=== PATIENT | female | born 2000 | race Caucasian/White ===

== ENCOUNTER → 2020-04-12 | Outpatient (CLI) | payer OTHER ==
[~2020-04-12] MED LIST: AMOCLA875 PO; Ativan0.5 MG PO; Ativan1 MG PO; CIPR500 PO; DOXY100 PO; HYOSCYAMINE; Hydroxyzine HCl25 MG PO; IBUP400 PO; METR500 PO; Multivitamins1 EACH PO; Norco 5-325 Ta1 EACH PO; ONDA4 PO; PROP10 PO; RANITIDINE; SULTRIDS PO; Zofran Odt4 MG SL
[2020-04-12 16:08] LABS: BASOPHILS ABSOLUTE AUTO 0.04 K/mm3 (0.00-0.23); BASOPHILS PERCENT AUTO 0 % (0-2); EOSINOPHILS ABSOLUTE AUTO 0.05 K/mm3 (0.00-0.68); EOSINOPHILS PERCENT AUTO 0 % (0-6); Hematocrit 39.8 % (33.0-51.0); Hemoglobin 13.9 g/dL (11.5-16.0); IMMATURE GRAN ABSOLUTE AUTO 0.03 K/mm3 (0.00-0.10); IMMATURE GRAN PERCENT AUTO 0 % (0-1); LYMPHOCYTES ABSOLUTE AUTO 1.54 K/mm3 (0.84-5.20); LYMPHOCYTES PERCENT AUTO 14 % (21-46); MONOCYTES ABSOLUTE AUTO 0.63 K/mm3 (0.16-1.47); MONOCYTES PERCENT AUTO 6 % (4-13); Mean Corpuscular HGB Conc 34.9 g/dL (31.5-36.5); Mean Corpuscular Volume 89 fL (80-100); Mean Platelet Volume 10.1 fL (9.1-12.4); NEUTROPHILS PERCENT AUTO 80 % (41-73); Platelet Count 351 K/mm3 (150-400); RDW Coefficient Variation 11.7 % (11.7-14.2); RDW Standard Deviation 37.9 fL (35.1-46.3); Red Blood Cell Count 4.48 M/mm3 (3.80-5.20); White Blood Cell Count 11.29 K/mm3 (4.00-11.30)
[2020-04-12 16:21] LABS: Alanine Aminotransfer (ALT/SGP 22 U/L (12-78); Albumin, Blood 3.9 g/dL (3.4-5.0); Albumin/Globulin Ratio 1.1 (0.8-1.8); Alk Phos 56 U/L (45-116); Anion Gap 6 mmol/L (6-16); Aspartate Aminotrans (AST/SGOT 19 U/L (12-37); Bilirubin, Total 0.5 mg/dL (0.1-1.0); Blood Urea Nitrogen 9 mg/dL (8-21); Bun/Creatinine Ratio 14.5 (12.0-20.0); CO2, Blood 28 mmol/L (21-32); Calcium, Blood 9.2 mg/dL (8.5-10.1); Chloride, Blood 104 mmol/L (98-108); Creatinine, Blood 0.62 mg/dL (0.40-1.00); Globulin, Blood 3.5 g/dL (2.2-4.0); Glomerular Filtration Rate >60 (60-); Glucose, Blood 102 mg/dL (70-99); Potassium, Blood 3.4 mmol/L (3.5-5.5); Sodium, Blood 138 mmol/L (136-145); Total Protein, Blood 7.4 g/dL (6.4-8.2)
== END ==
LOC: LAB 15:55
PROVIDERS: Family Medicine
DX: R42 Dizziness and giddiness (principal)
CPT/HCPCS: 80053; 84443; 85025

== ENCOUNTER 2020-04-27 11:54 | Emergency (ER) | payer OTHER ==
[~2020-04-27] VITALS: Ht 152.4 cm; Wt 47.6 kg
[~2020-04-27 11:54] MED LIST changes: -AMOCLA875 PO; -CIPR500 PO; -DOXY100 PO; -Hydroxyzine HCl25 MG PO; -IBUP400 PO; -METR500 PO; -Multivitamins1 EACH PO; -Norco 5-325 Ta1 EACH PO; -ONDA4 PO; -PROP10 PO; -SULTRIDS PO
[2020-04-27 12:55] LABS: BASOPHILS ABSOLUTE AUTO 0.03 K/mm3 (0.00-0.23); BASOPHILS PERCENT AUTO 0 % (0-2); EOSINOPHILS ABSOLUTE AUTO 0.01 K/mm3 (0.00-0.68); EOSINOPHILS PERCENT AUTO 0 % (0-6); Hematocrit 38.3 % (33.0-51.0); Hemoglobin 13.5 g/dL (11.5-16.0); IMMATURE GRAN PERCENT AUTO 1 % (0-1); LYMPHOCYTES PERCENT AUTO 3 % (21-46); MONOCYTES ABSOLUTE AUTO 1.18 K/mm3 (0.16-1.47); MONOCYTES PERCENT AUTO 8 % (4-13); Mean Corpuscular HGB 31.9 pg (26.0-34.0); Mean Corpuscular HGB Conc 35.2 g/dL (31.5-36.5); Mean Corpuscular Volume 91 fL (80-100); Mean Platelet Volume 9.9 fL (9.1-12.4); NEUTROPHILS ABSOLUTE AUTO 13.73 K/mm3 (1.96-9.15); NEUTROPHILS PERCENT AUTO 88 % (41-73); Platelet Count 259 K/mm3 (150-400); RDW Coefficient Variation 12.1 % (11.7-14.2); RDW Standard Deviation 39.8 fL (35.1-46.3); Red Blood Cell Count 4.23 M/mm3 (3.80-5.20); White Blood Cell Count 15.55 K/mm3 (4.00-11.30)
[2020-04-27 13:12] LABS: International Normalized Ratio 1.11; Prothrombin Time Results 11.8 Sec (9.7-11.5)
[2020-04-27 13:15] LABS: Alanine Aminotransfer (ALT/SGP 13 U/L (12-78); Albumin, Blood 3.3 g/dL (3.4-5.0); Albumin/Globulin Ratio 0.8 (0.8-1.8); Alk Phos 43 U/L (45-116); Anion Gap 9 mmol/L (6-16); Aspartate Aminotrans (AST/SGOT 12 U/L (12-37); Bilirubin, Total 0.4 mg/dL (0.1-1.0); Blood Urea Nitrogen 5 mg/dL (8-21); Bun/Creatinine Ratio 8.4 (12.0-20.0); CO2, Blood 21 mmol/L (21-32); Calcium, Blood 8.8 mg/dL (8.5-10.1); Chloride, Blood 107 mmol/L (98-108); Creatinine, Blood 0.59 mg/dL (0.40-1.00); Glomerular Filtration Rate >60 (60-); Glucose, Blood 132 mg/dL (70-99); Potassium, Blood 3.1 mmol/L (3.5-5.5); Sodium, Blood 137 mmol/L (136-145); Total Protein, Blood 7.3 g/dL (6.4-8.2)
[2020-04-27 14:00] LABS: Source, Urine Catheter
[2020-04-27 14:07] LABS: Bilirubin, Urine Neg (Neg); Blood, Urine 1+ (Neg); Glucose Qualitative, Urine Neg (Neg); Ketones, Urine Neg (Neg); Leukocyte Esterase, Urine Neg (Neg); Nitrite, Urine Neg (Neg); Protein, Urine Neg (Neg); Specific Gravity, Urine 1.005 (1.003-1.022); Urobilinogen, Urine NORM (Normal); pH, Urine 6.5 (5.0-8.0)
[2020-04-27 14:21] LABS: Appearance, Urine Clear (Clear); Color, Urine Pale Yellow (P-Yellow)
[2020-04-27 14:22] LABS: Bacteria Few /hpf; Red Blood Cells, Urine 0-2 /hpf (0-2); Squamous Epithelial Cells Not Seen /hpf (Few); White Blood Cells, Urine Not Seen /hpf (0-5)
[2020-04-27] MEDS ORDERED: DOXY100 PO (15:20)
[2020-08-15] MEDS ORDERED: IBUP400 PO (03:36)
[2020-08-15] MEDS ORDERED: Multivitamins1 EACH PO (03:37)
[2020-08-16] MEDS ORDERED: AMOCLA875 PO (12:07)
== END 2020-04-27 15:32 | disposition home or self-care (01) ==
LOC: ER 11:54
PROVIDERS: Physician Assistant
DX: S60.511A Abrasion of right hand, initial encounter (principal); E87.6 Hypokalemia; R59.0 Localized enlarged lymph nodes; R50.9 Fever, unspecified; Z88.0 Allergy status to penicillin; Z79.899 Other long term (current) drug therapy; W55.03XA Scratched by cat, initial encounter
CPT/HCPCS: 36415; 76882; 80053; 81001; 81025; 83605; 85025; 85610; 85730; 86308; 87040; 87086; 93005; 93010; 96374; 96375; 99284-25; J1885; J2405; J3010; J7030

== ENCOUNTER → 2020-05-18 | Outpatient (CLI) | payer OTHER ==
[~2020-05-18] MED LIST changes: +AMOCLA875 PO; +CIPR500 PO; +DOXY100 PO; +Hydroxyzine HCl25 MG PO; +IBUP400 PO; +METR500 PO; +Multivitamins1 EACH PO; +Norco 5-325 Ta1 EACH PO; +ONDA4 PO; +PROP10 PO; +SULTRIDS PO
[2020-05-18 19:30] LABS: Hemoglobin 12.3 g/dL (11.5-16.0); Mean Corpuscular HGB 30.1 pg (26.0-34.0); Mean Corpuscular HGB Conc 33.2 g/dL (31.5-36.5); Mean Corpuscular Volume 91 fL (80-100); Mean Platelet Volume 10.1 fL (9.1-12.4); Platelet Count 605 K/mm3 (150-400); RDW Coefficient Variation 11.7 % (11.7-14.2); RDW Standard Deviation 38.9 fL (35.1-46.3); Red Blood Cell Count 4.08 M/mm3 (3.80-5.20); White Blood Cell Count 20.41 K/mm3 (4.00-11.30)
[2020-05-18 19:53] LABS: BASOPHILS PERCENT MAN 1 % (0-2); EOSINOPHILS PERCENT MAN 1 % (0-6); LYMPHOCYTES ABSOLUTE MAN 2.85 K/mm3 (0.84-5.20); LYMPHOCYTES PERCENT MAN 14 % (21-46); MONOCYTES ABSOLUTE MAN 1.22 K/mm3 (0.16-1.47); MONOCYTES PERCENT MAN 6 % (4-13); NEUTROPHILS ABSOLUTE MAN 15.91 K/mm3 (1.96-9.15); SEG NEUTROPHILS PERCENT MAN 78 % (41-73); TOTAL CELLS COUNTED 100
== END | disposition home or self-care (01) ==
LOC: LAB SHORT 19:23 → LAB 19:23
PROVIDERS: Nurse Practitioner
DX: A28.1 Cat-scratch disease (principal)
CPT/HCPCS: 85007; 85027; 85651

== ENCOUNTER 2020-05-19 12:11 | Observation (INO) | payer OTHER ==
[~2020-05-19] VITALS: Ht 152.4 cm; Wt 45.4 kg
[~2020-05-19 12:11] MED LIST changes: -AMOCLA875 PO; -CIPR500 PO; -Hydroxyzine HCl25 MG PO; -IBUP400 PO; -METR500 PO; -Multivitamins1 EACH PO; -Norco 5-325 Ta1 EACH PO; -ONDA4 PO; -PROP10 PO; -SULTRIDS PO
[2020-05-19] MEDS ORDERED: PROP10 PO (15:46)
[2020-05-19] MEDS ORDERED: Hydroxyzine HCl25 MG PO (15:47)
[2020-05-19] MEDS ORDERED: Norco 5-325 Ta1 EACH PO (16:03)
[2020-05-19] MEDS ORDERED: CIPR500 PO (16:03)
[2020-05-19 16:30] LABS: BASOPHILS PERCENT AUTO 0 % (0-2); EOSINOPHILS ABSOLUTE AUTO 0.14 K/mm3 (0.00-0.68); EOSINOPHILS PERCENT AUTO 1 % (0-6); Hematocrit 36.9 % (33.0-51.0); Hemoglobin 12.6 g/dL (11.5-16.0); IMMATURE GRAN ABSOLUTE AUTO 0.14 K/mm3 (0.00-0.10); IMMATURE GRAN PERCENT AUTO 1 % (0-1); LYMPHOCYTES ABSOLUTE AUTO 1.88 K/mm3 (0.84-5.20); LYMPHOCYTES PERCENT AUTO 8 % (21-46); MONOCYTES ABSOLUTE AUTO 1.26 K/mm3 (0.16-1.47); MONOCYTES PERCENT AUTO 5 % (4-13); Mean Corpuscular HGB 30.3 pg (26.0-34.0); Mean Corpuscular HGB Conc 34.1 g/dL (31.5-36.5); Mean Corpuscular Volume 89 fL (80-100); Mean Platelet Volume 9.6 fL (9.1-12.4); NEUTROPHILS PERCENT AUTO 85 % (41-73); Platelet Count 568 K/mm3 (150-400); RDW Coefficient Variation 11.6 % (11.7-14.2); RDW Standard Deviation 37.2 fL (35.1-46.3); Red Blood Cell Count 4.16 M/mm3 (3.80-5.20); White Blood Cell Count 23.62 K/mm3 (4.00-11.30)
[2020-05-19 16:42] LABS: Alanine Aminotransfer (ALT/SGP 14 U/L (12-78); Albumin/Globulin Ratio 0.5 (0.8-1.8); Alk Phos 50 U/L (50-136); Anion Gap 4 mmol/L (6-16); Aspartate Aminotrans (AST/SGOT 13 U/L (12-37); Bilirubin, Total 0.4 mg/dL (0.1-1.0); Blood Urea Nitrogen 5 mg/dL (8-24); Bun/Creatinine Ratio 8.4 (12.0-20.0); CO2, Blood 29 mmol/L (21-32); Calcium, Blood 9.5 mg/dL (8.5-10.1); Chloride, Blood 104 mmol/L (98-108); Globulin, Blood 5.5 g/dL (2.2-4.0); Glomerular Filtration Rate >60 (60-); Glucose, Blood 97 mg/dL (70-99); Potassium, Blood 4.1 mmol/L (3.5-5.5); Sodium, Blood 137 mmol/L (136-145); Total Protein, Blood 8.5 g/dL (6.4-8.2)
[2020-05-19 16:46] LABS: International Normalized Ratio 1.14; Prothrombin Time Results 12.1 Sec (9.7-11.5)
--- NOTE | 2020-05-19 16:48 | NUR ---
ADMISSION PT ARRIVED TO FLOOR AT APROX 1630 FROM ER. PT L BREAST WITH A LARGE AMOUNT OF SWELLING AND FIRMNESS, PAIN WITH PALPATION. PT TO US FOR ASPIRATION AT APROX 1656.
--- NOTE | 2020-05-19 17:58 | NUR ---
PT RETURNED TO ROOM FROM US GUIDED ASPIRATION OF L BREAST. PT REPORTS FEELING "MUCH BETTER" FOLLOWIN PROCEDURE.
[2020-05-20 04:57] LABS: BASOPHILS ABSOLUTE AUTO 0.08 K/mm3 (0.00-0.23); BASOPHILS PERCENT AUTO 1 % (0-2); EOSINOPHILS ABSOLUTE AUTO 0.23 K/mm3 (0.00-0.68); EOSINOPHILS PERCENT AUTO 1 % (0-6); Hematocrit 31.2 % (33.0-51.0); Hemoglobin 10.5 g/dL (11.5-16.0); IMMATURE GRAN ABSOLUTE AUTO 0.08 K/mm3 (0.00-0.10); IMMATURE GRAN PERCENT AUTO 1 % (0-1); LYMPHOCYTES PERCENT AUTO 12 % (21-46); MONOCYTES ABSOLUTE AUTO 1.18 K/mm3 (0.16-1.47); MONOCYTES PERCENT AUTO 7 % (4-13); Mean Corpuscular HGB Conc 33.7 g/dL (31.5-36.5); Mean Corpuscular Volume 89 fL (80-100); Mean Platelet Volume 9.4 fL (9.1-12.4); NEUTROPHILS PERCENT AUTO 79 % (41-73); Platelet Count 437 K/mm3 (150-400); RDW Coefficient Variation 11.7 % (11.7-14.2); RDW Standard Deviation 37.4 fL (35.1-46.3); White Blood Cell Count 16.17 K/mm3 (4.00-11.30)
[2020-05-20 05:17] LABS: Anion Gap 8 mmol/L (6-16); Blood Urea Nitrogen 4 mg/dL (8-24); Bun/Creatinine Ratio 6.9 (12.0-20.0); CO2, Blood 25 mmol/L (21-32); Calcium, Blood 8.5 mg/dL (8.5-10.1); Chloride, Blood 105 mmol/L (98-108); Creatinine, Blood 0.58 mg/dL (0.40-1.00); Glomerular Filtration Rate >60 (60-); Glucose, Blood 97 mg/dL (70-99); Potassium, Blood 3.5 mmol/L (3.5-5.5); Sodium, Blood 138 mmol/L (136-145)
--- NOTE | 2020-05-20 05:52 | NUR ---
SHIFT SUMMARY PT RESTING WELL THIS NOC SHIFT. AAOX4. DISCOMFORT CONTROLLED WITH 1 NORCO Q4-5P. NO NAUSEA/EMESIS. ASPIRATION SITE TO BREAST C/D/I. GOOD PO INTAKE + OUTPUT. NO ACUTE CHANGES OVER NIGHT. PT CURRENTLY RESTING IN BED WITH CALL LIGHT IN REACH.
[2020-05-20] MEDS ORDERED: AMOCLA875 PO (15:33)
[2020-08-15] MEDS ORDERED: IBUP400 PO (03:36)
[2020-08-15] MEDS ORDERED: Multivitamins1 EACH PO (03:37)
[2020-08-16] MEDS ORDERED: AMOCLA875 PO (12:07)
== END 2020-05-20 15:46 | disposition home or self-care (01) ==
LOC: ER 12:11 → US 12:11 → ERHOLD 12:12 → EDSTATUS 13:36 → SURS 16:38
PROVIDERS: Physician Assistant; ADMIT Surgery
DX: N61.1 Abscess of the breast and nipple (principal); A28.1 Cat-scratch disease; A41.9 Sepsis, unspecified organism; F41.9 Anxiety disorder, unspecified; Z88.0 Allergy status to penicillin; Z88.1 Allergy status to other antibiotic agents
CPT/HCPCS: 10030; 36415; 76604; 80048; 80053; 83605; 85025; 85610; 85730; 87040; 87070; 87075; 87147; 87205; 88108; 96374; 96374-59; 96375; 99284-25; A9270; G0008; G0378; J1170; J2405; J7030; Q2038

== ENCOUNTER 2020-06-01 08:54 | Day surgery (SDC) | payer OTHER ==
[~2020-06-01 08:54] MED LIST changes: +AMOCLA875 PO; +CIPR500 PO; +Hydroxyzine HCl25 MG PO; +Norco 5-325 Ta1 EACH PO; +PROP10 PO
[2020-08-15] MEDS ORDERED: IBUP400 PO (03:36)
[2020-08-15] MEDS ORDERED: Multivitamins1 EACH PO (03:37)
[2020-08-16] MEDS ORDERED: AMOCLA875 PO (12:07)
== END 2020-06-01 22:43 | disposition home or self-care (01) ==
LOC: MOI US 08:54 → MOI MAM 10:15 → MOI US 10:15
DX: N61.1 Abscess of the breast and nipple (principal); B96.89 Other specified bacterial agents as the cause of diseases classified elsewhere
CPT/HCPCS: 19000; 76642; 76942; 87070; 87075; 87205; 88108

== ENCOUNTER 2020-06-15 13:44 | Day surgery (SDC) | payer OTHER ==
[2020-08-15] MEDS ORDERED: IBUP400 PO (03:36)
[2020-08-15] MEDS ORDERED: Multivitamins1 EACH PO (03:37)
[2020-08-16] MEDS ORDERED: AMOCLA875 PO (12:07)
== END 2020-06-15 22:42 | disposition home or self-care (01) ==
LOC: US 13:44
DX: N61.1 Abscess of the breast and nipple (principal)
CPT/HCPCS: 10030; 87070; 87075; 87205

== ENCOUNTER 2020-06-18 02:09 | Emergency (ER) | payer OTHER ==
[~2020-06-18] VITALS: Ht 152.4 cm; Wt 45.4 kg
[2020-06-18] MEDS ORDERED: METR500 PO (03:51)
[2020-06-18] MEDS ORDERED: SULTRIDS PO (03:52)
[2020-06-18] MEDS ORDERED: ONDA4 PO (03:52)
[2020-08-15] MEDS ORDERED: IBUP400 PO (03:36)
[2020-08-15] MEDS ORDERED: Multivitamins1 EACH PO (03:37)
[2020-08-16] MEDS ORDERED: AMOCLA875 PO (12:07)
== END 2020-06-18 04:21 | disposition home or self-care (01) ==
LOC: ER 02:09
DX: T85.43XA Leakage of breast prosthesis and implant, initial encounter (principal); Z79.899 Other long term (current) drug therapy; Z88.0 Allergy status to penicillin
CPT/HCPCS: 99282

== ENCOUNTER 2020-12-23 00:40 | Emergency (ER) | payer OTHER ==
[~2020-12-23] VITALS: Ht 152.4 cm; Wt 47.6 kg
[~2020-12-23 00:40] MED LIST changes: +IBUP400 PO; +METR500 PO; +Multivitamins1 EACH PO; +ONDA4 PO; +SULTRIDS PO
[2020-12-23] MEDS ORDERED: ALBU90OI INH (02:10)
== END 2020-12-23 02:18 | disposition home or self-care (01) ==
LOC: ER 00:40
DX: U07.1 COVID-19 (principal); F17.290 Nicotine dependence, other tobacco product, uncomplicated; Z88.0 Allergy status to penicillin
CPT/HCPCS: 99282